=== PATIENT | female | born 1980 | race Two or more races ===

== ENCOUNTER 2025-03-04 12:47 | Outpatient (CLI) | payer OTHER ==
[2025-03-04 13:37] LABS: Basophils # (auto) 0 10 ^3/uL (0-0.2); Basophils % (auto) 0.4 % (0.0-2.0); Eosinophils # (auto) 0 10 ^3/uL (0-0.8); Eosinophils % (auto) 0.4 % (0.0-7.0); Hematocrit 24.9 % (36.0-46.0); Hemoglobin 7.4 g/dL (12.2-16.2); Lymphocytes # (auto) 1.7 10 ^3/uL (0.4-5.4); Lymphocytes % (auto) 21.8 % (10.0-50.0); Mean Corpuscular Hemoglobin 18.6 pg (28.0-32.0); Mean Corpuscular Hgb Conc. 29.8 g/dL (32.0-36.0); Mean Corpuscular Volume 62.3 fL (80.0-100.0); Monocytes # (auto) 0.5 10 ^3/uL (0-1.3); Monocytes % (auto) 5.9 % (0.0-12.0); Neutrophils # (auto) 5.5 10 ^3/uL (1.6-8.6); Neutrophils % (auto) 71.5 % (37.0-80.0); Platelet Count (auto) 372 10^3/uL (140-450); Red Blood Cells 3.99 10^6/uL (4.0-5.20); Red Cell Distribution Width 19.7 % (11.8-14.3); Urine Blood Negative /uL (Negative); Urine Clarity Turbid (Clear); Urine Color Colorless (Yellow); Urine Protein, UAD TRACE (Negative); Urine Specific Gravity 1.021 (1.001-1.035); Urine Urobilinogen 2 mg/dL (Negative); White Blood Cell 7.6 10^3/uL (4.4-10.8)
[2025-03-04 13:45] LABS: Alanine Aminotransferase 19 U/L (7-40); Alkaline Phosphatase 112 U/L (46-116); Anion Gap 7 (5-15); Carbon Dioxide 24 mmol/L (20-31); Glucose 92 mg/dL (74-106); Potassium 4.1 mmol/L (3.5-5.1); Sodium 139 mmol/L (136-145); Total Protein 7.6 g/dL (5.7-8.2)
[2025-03-04 13:46] LABS: Albumin 4.4 g/dL (3.2-4.8); Aspartate Aminotransferase 19 U/L (<34); BUN/Creatinine Ratio 12.3 (10.0-20.0); Creatine Kinase IFCC 84 U/L (34-145)
[2025-03-04 13:47] LABS: Bilirubin, Total 0.2 mg/dL (0.2-1.0); Blood Urea Nitrogen 8 mg/dL (9-23); Calcium 11.6 mg/dL (8.7-10.4); Chloride 108 mmol/L (98-107)
[2025-03-04 14:44] LABS: Hypochromia Slight; Platelet Estimate Adequate
== END 2025-03-04 17:00 | disposition home or self-care (01) ==
LOC: LAB 12:47
PROVIDERS: ATTEND Preventive Medicine Preventive Medicine/Occupational Environmental Medicine
DX: T67.1XXA Heat syncope, initial encounter (principal); X58.XXXA Exposure to other specified factors, initial encounter; Y93.89 Activity, other specified; Y92.89 Other specified places as the place of occurrence of the external cause; Y99.8 Other external cause status
CPT/HCPCS: 36415; 80053; 81003; 82550; 82553; 85025